=== PATIENT | male | born 1990 | race Caucasian/White ===

== ENCOUNTER 2017-10-26 14:50 | Emergency (ER) | payer OTHER, BC ==
[~2017-10-26] VITALS: Ht 188 cm; Wt 80.3 kg
[2017-10-26 17:41] LABS: APPEARANCE SL.HAZY ((CLEAR)); BILIRUBIN NEGATIVE; BLOOD SMALL; COLOR YELLOW ((YELLOW)); GLUCOSE (STRIP) NEGATIVE; KETONES 5; LEUKOCYTES SMALL; NITRITE NEGATIVE; PROTEIN (STRIP) 100; SPECIFIC GRAVITY 1.011 (1.000-1.030)
[2017-10-26 17:49] LABS: BACTERIA NONE SEEN /HPF; EPITHELIAL CELLS RARE /HPF; MUCUS TRACE /LPF; WHITE BLOOD CELLS 40-50 /HPF (0-5)
[2017-10-26] MEDS ORDERED: CIPRO500 MG PO (18:29)
[2017-10-26 18:39] LABS: SOURCE URINE
[2017-10-26 18:44] VITALS: BP 142/70
[2017-10-27 13:26] LABS: CHLAMYDIA TRACHOMATIS POSITIVE; NEISSERIA GONORRHOEAE NEGATIVE
== END 2017-10-26 18:47 | disposition home or self-care (01) ==
LOC: EME 14:50
PROVIDERS: Physician Assistant Medical
DX: S01.01XA Laceration without foreign body of scalp, initial encounter (principal); N39.0 Urinary tract infection, site not specified; W20.8XXA Other cause of strike by thrown, projected or falling object, initial encounter; Y99.0 Civilian activity done for income or pay; Z23 Encounter for immunization; F17.200 Nicotine dependence, unspecified, uncomplicated
CPT/HCPCS: 70450; 81003; 87491; 87591; 99281; 99284

== ENCOUNTER 2017-11-01 20:23 | Emergency (ER) | payer BC ==
[~2017-11-01] VITALS: Ht 188 cm; Wt 78.3 kg
[~2017-11-01 20:23] MED LIST: CIPRO500 MG PO
[2017-11-01 23:16] LABS: APPEARANCE SL.HAZY ((CLEAR)); BILIRUBIN NEGATIVE; BLOOD NEGATIVE; COLOR YELLOW ((YELLOW)); GLUCOSE (STRIP) NEGATIVE; KETONES NEGATIVE; LEUKOCYTES SMALL; NITRITE NEGATIVE; PROTEIN (STRIP) NEGATIVE; SPECIFIC GRAVITY 1.025 (1.000-1.030)
[2017-11-01 23:20] LABS: BACTERIA NONE SEEN /HPF; CALCIUM OXALATE CRYSTALS 4+ /HPF; EPITHELIAL CELLS RARE /HPF; MUCUS 3+ /LPF; RED BLOOD CELLS 15-20 /HPF (0-5); WHITE BLOOD CELLS 30-40 /HPF (0-5)
[2017-11-01] MEDS ORDERED: ZOFRAN ODT8 MG PO (23:50)
[2017-11-01] MEDS ORDERED: FIORICET 50-301 EAC1 PO (23:50)
[2017-11-02 00:03] VITALS: BP 122/81
== END 2017-11-02 00:11 | disposition home or self-care (01) ==
LOC: EME 20:23
PROVIDERS: Physician Assistant
DX: F07.81 Postconcussional syndrome (principal); S01.01XD Laceration without foreign body of scalp, subsequent encounter; W20.8XXD Other cause of strike by thrown, projected or falling object, subsequent encounter; F17.200 Nicotine dependence, unspecified, uncomplicated
CPT/HCPCS: 70450; 81003; 99281; 99284